=== PATIENT | female | born 1980 | race African-American/Black ===

== ENCOUNTER 2016-11-26 13:05 | Emergency (ER) | payer OTHER, BC ==
[2016-11-26 13:09] VITALS: TEMP 98.5; BMI 25.9
--- NOTE | 2016-11-26 14:51 | PDOC ---
History of Present Illness - General History Source: Patient Exam Limitations: No Limitations - History of Present Illness Initial Comments: 11/26/16 14:52 The patient is a 36-year-old woman A1, currently 24 weeks , with no past medical history who was advised to presents to the emergency department by her Bulking Machine Operator Dr. Preeti Cantrell to rule out possible deep venous thrombosis. As per patient, she reports experiencing left calf discomfort for the past 2 days. She notes that her pain is worsen when she applies pressure on her leg. She also recalls noting mild left ankle swelling last night. No chest pain, cough, shortness of breath, lightheadedness, headaches, visual changes, dizziness, nausea, vomiting. She denies recent travel /surgeries/immobility, tobacco use, hormone use, personal or family history of thrombosis. Allergies: Shellfish. Past Surgical History: None reported Social History: No tobacco, EtOH and recreational drug use. Demolition Crane Operator: Dr. Preeti Cantrell. <Jaylin Denise - Last Filed: 11/26/16 16:11> - General History Source: Patient <DougnestorGiovanni - Last Filed: 11/26/16 16:13> - General Chief Complaint: Pain, Acute Stated Complaint: DVT, 24 WKS Time Seen by Provider: 11/26/16 14:50 Past History <Jaylin Denise - Last Filed: 11/26/16 16:11> - Past Medical History Asthma: No Cancer: No Cardiac Disorders: No Diabetes: No HTN: No Seizures: No Thyroid Disease: No - Psycho/Social/Smoking Cessation Hx Suicidal Ideation: No Smoking History: Never smoked Hx Alcohol Use: No Drug/Substance Use Hx: No Hx Substance Use Treatment: No <ObeyGiovanni - Last Filed: 11/26/16 16:13> - Past Medical History Allergies/Adverse Reactions: Allergies Allergy/AdvReac Type Severity Reaction Status Date / Time shellfish derived Allergy Severe Difficulty Verified 11/26/16 13:07 Breathing Home Medications: Ambulatory Orders Ferrous Sulfate [Feosol -] 325 mg PO BID 11/08/14 Vit/Iron Fumarate/FA [ Tablet] 1 each PO DAILY 11/08/14 Docusate Sodium [Colace] 100 mg PO TID #90 capsule 11/28/14 Review of Systems - Review of Systems Able to Perform ROS?: Yes Comments:: 11/26/16 14:52 CONSTITUTIONAL: Absent: fever, chills, diaphoresis, generalized weakness, malaise, loss of appetite HEENT: Absent: rhinorrhea, nasal congestion, throat pain, throat swelling, difficulty swallowing, mouth swelling, ear pain, eye pain, visual Changes CARDIOVASCULAR: Absent: chest pain, syncope, palpitations, irregular heart rate , lightheadedness, peripheral edema RESPIRATORY: Absent: cough, shortness of breath, dyspnea with exertion, orthopnea, wheezing, stridor, hemoptysis GASTROINTESTINAL:Absent: abdominal pain, abdominal distension, nausea, vomiting , diarrhea, constipation, melena, hematochezia GENITOURINARY: Absent: dysuria, frequency, urgency, hesitancy, hematuria, flank pain, genital pain MUSCULOSKELETAL: Present: Left calf pain. Left ankle swelling. Absent: joint swelling SKIN: Absent: rash, itching, pallor HEMATOLOGIC/IMMUNOLOGIC: Absent: easy bleeding, easy bruising, lymphadenopathy, frequent infections ENDOCRINE:Absent: unexplained weight gain, unexplained weight loss, heat intolerance, cold intolerance NEUROLOGIC: Absent: headache, focal weakness or paresthesias, dizziness, unsteady gait, seizure, mental status changes, bladder or bowel incontinence PSYCHIATRIC: Absent: anxiety, depression, suicidal or homicidal ideation, hallucinations <Jaylin Denise - Last Filed: 11/26/16 16:11> *Physical Exam - Vital Signs Last Vital Signs Temp Pulse Resp BP Pulse Ox 98.5 F 93 H 18 124/73 97 11/26/16 13:08 11/26/16 13:08 11/26/16 13:08 11/26/16 13:08 11/26/16 13:08 - Physical Exam Comments: 11/26/16 14:52 GENERAL: Well developed, well nourished. Awake and alert. No acute distress. HEENT: Normocephalic, atraumatic. PERRLA, EOMI. No conjunctival pallor. Sclera are non-icteric. Moist mucous membranes. Oropharynx is clear. NECK: Supple. Full ROM. No JVD. CARDIOVASCULAR: Regular rate and rhythm. No murmurs, rubs, or gallops. PULMONARY: No evidence of respiratory distress. Lungs clear to auscultation bilaterally. No wheezing, rales or rhonchi. ABDOMINAL: Soft. Non-tender. Non-distended. No rebound or guarding. No organomegaly. Normoactive bowel sounds. MUSCULOSKELETAL: Normal range of motion at all joints. No bony deformities or tenderness. No CVA tenderness. EXTREMITIES: There is reproducible left medial gastrocnemius head tenderness to palpation. No cyanosis. No clubbing. No edema. SKIN: Warm and dry. Normal capillary refill. No rashes. No jaundice. NEUROLOGICAL: Alert, awake, appropriate. Cranial nerves 2-12 intact. No deficits to light touch and temperature in face, upper extremities and lower extremities. No motor deficits in the in face, upper extremities and lower extremities. Normoreflexic in the upper and lower extremities. Normal speech. PSYCHIATRIC: Cooperative. Good eye contact. Appropriate mood and affect. <Jaylin Denise - Last Filed: 11/26/16 16:11> - Vital Signs Last Vital Signs Temp Pulse Resp BP Pulse Ox 98.5 F 93 H 18 124/73 97 11/26/16 13:08 11/26/16 13:08 11/26/16 13:08 11/26/16 13:08 11/26/16 13:08 <Giovanni Barnhart - Last Filed: 11/26/16 16:13> Medical Decision Making - Medical Decision Making 11/26/16 16:12 The patient is well-appearing and in no acute distress Ultrasound noted, without evidence of DVT Her signs and symptoms do represent a musculoskeletal injury She understands that she should have a repeat ultrasound in 3-5 days Clinical impression: Gastrocnemius muscle strain I discussed the physical exam findings, ancillary test results and final diagnoses with the patient. I answered all of the patient's questions. The patient was satisfied with the care received and felt comfortable with the discharge plan and treatment plan. The patient will call their primary care physician within 24 hours to arrange follow-up and will return to the Emergency Department with any new, persistent or worsening symptoms. A portion of this note was documented by scribe services under my direction. I have reviewed the details of the note, within reason, and agree with the documentation with the following case summary and management plan written by me. <Giovanni Barnhart - Last Filed: 11/26/16 16:13> *DC/Admit/Observation/Transfer - Attestations Scribe Attestion: 11/26/16 14:52 Documentation prepared by Jaylin Denise, acting as director of medical education for Giovanni Barnhart MD. <Jaylin Denise - Last Filed: 11/26/16 16:11> <Giovanni Barnhart - Last Filed: 11/26/16 16:13> Diagnosis at time of Disposition: Strain of calf muscle - Discharge Dispostion Disposition: HOME Condition at time of disposition: Improved - Referrals Referrals: Steve Calzada MD [Primary Care Provider] - - Patient Instructions Printed Discharge Instructions: DI for Muscle Strain Additional Instructions: Your ultrasound did not show evidence of deep venous thrombosis. However, it is advisable that you have a repeat ultrasound in 3-5 days as 2 ultrasounds have a much higher negative predictive value for DVT. Return to the emergency department immediately with ANY new, persistent or worsening symptoms. You MUST call and follow up with your doctor tomorrow. Please make sure your doctor reviews the results of your emergency department evaluation.
[2016-11-26 17:01] VITALS: BP 122/69; PULSE 88
== END 2016-11-26 16:35 | disposition home or self-care (01) ==
LOC: JER 13:05
DX: O26.892 Other specified pregnancy related conditions, second trimester (principal); Z3A.24 24 weeks gestation of pregnancy
CPT/HCPCS: 93971-TC; 99282-25

== ENCOUNTER 2017-03-15 20:40 | Inpatient (IN) | payer BC ==
[2017-03-15 22:09] LABS: BASOPHIL 0.5 % (0-2.0); EOSINOPHIL 0.3 % (0-4.5); MCH 28.1 pg (25.7-33.7); MCHC 32.8 g/dl (32.0-36.0); MEAN CELL VOLUME 85.6 fl (80-96); MEAN PLT VOLUME 10.3 fl (7.5-11.1); NEUTROPHILS 74.1 % (42.8-82.8); PLATELET COUNT 180 K/MM3 (134-434); RDW 14.8 % (11.6-15.6); WHITE BLOOD COUNT 9.2 K/mm3 (4.0-10.0)
--- NOTE | 2017-03-15 22:15 | HP ---
Past Medical History - Admission Chief Complaint: Gestational diabetes History of Present Illness: 36 yo 39.6 weeks gestation with GDMA, admitted for cervidil induction. Patient denies any contractions pain. History Source: Patient Limitations to Obtaining History: No Limitations - Past Medical History ...: 4 ...Para: 1 ...EDC by Francchandu: 03/16/17 - Past Surgical History Past Surgical History: Yes: None Hx Myomectomy: No Hx Transabdominal Cerclage: No - Smoking History Smoking history: Never smoked - Alcohol/Substance Use Hx Alcohol Use: No - Social History Usual Living Arrangement: Yes: With Spouse History of Recent Travel: No Home Medications - Allergies Allergies/Adverse Reactions: Allergies Allergy/AdvReac Type Severity Reaction Status Date / Time shellfish derived Allergy Severe Difficulty Verified 11/26/16 13:07 Breathing - Home Medications Home Medications: Ambulatory Orders Vit/Iron Fumarate/FA [ Tablet] 1 each PO DAILY 11/08/14 Family Disease History - Family Disease History Family History: Unremarkable Review of Systems - Review of Systems Constitutional: reports: No Symptoms Eyes: reports: No Symptoms HENT: reports: No Symptoms Neck: reports: No Symptoms Cardiovascular: reports: No Symptoms Respiratory: reports: No Symptoms Gastrointestinal: reports: No Symptoms Genitourinary: reports: No Symptoms Breasts: reports: No Symptoms Reported Musculoskeletal: reports: No Symptoms Integumentary: reports: No Symptoms Neurological: reports: No Symptoms Endocrine: reports: No Symptoms Hematology/Lymphatic: reports: No Symptoms Psychiatric: reports: No Symptoms Pain Intensity: 0 Physical Exam - Maternity Constitutional: Yes: Well Nourished Eyes: Yes: Conjunctiva Clear HENT: Yes: Atraumatic Neck: Yes: Supple Cardiovascular: Yes: Regular Rate and Rhythm Lungs: Clear to auscultation Breast(s): Yes: WNL - Abdominal Exam/OB Number of Fetuses: Single Presentation: Vertex - Vaginal Exam/OB Vaginal Bleediing: No Speculum Exam: No Dilatation (cm): 1 Effacement (%): 50 Amniotic Membrane Status: Intact Station: -4 - Physical Exam Musculoskeletal: Yes: WNL Extremities: Yes: WNL ...Motor Strength: WNL Psychiatric: Yes: Alert, Oriented Problem List - Problems (1) Gestational diabetes Code(s): O24.419 - GESTATIONAL DIABETES MELLITUS IN , UNSP CONTROL Assessment/Plan Gestational diabetes Admit for cervidil induction Re-evaluate in 12 hrs or before if indicated
[2017-03-15 22:22] LABS: INR 0.99 (0.82-1.09); PROTHROMBIN TIME (PATIENT) 10.9 SEC (9.98-11.88)
[2017-03-15 22:25] LABS: ACTIVATED PTT 26.4 SECONDS (26.9-34.4)
[2017-03-15 22:32] LABS: ANION GAP 10 (8-16); CALCIUM 8.7 mg/dL (8.5-10.1); CO2 24 mmol/L (21-32); CREATININE 0.6 mg/dL (0.55-1.02); GLUCOSE,RANDOM 120 mg/dL (74-106)
[2017-03-15 22:37] VITALS: BMI 28.3
[2017-03-15 22:55] LABS: HIV 1 & 2 AB NEGATIVE; HIV 1 AGp24 NEGATIVE
[2017-03-16] MEDS ORDERED: BUTORPHANOL TARTRATE 1 MG/ML VIAL IVPB ONE (09:20)
[2017-03-16] MEDS ORDERED: PROMETHAZINE HCL 25 MG/1 ML VIAL IVPUSH ONE (09:20)
--- NOTE | 2017-03-16 09:20 | PN ---
Ante-Partal Exam - Subjective Subjective: Pt with cramping no ROM no JIMENEZ o RUQ pain Vital Signs: Vital Signs Temperature 98.3 F 03/16/17 06:00 Pulse Rate 98 H 03/16/17 09:00 Respiratory Rate 20 03/16/17 09:00 Blood Pressure 95/68 03/16/17 09:00 O2 Sat by Pulse Oximetry (%) Bleeding: No Headache: No Visual changes: No Right upper quadrant pain: No - Contractions Contractions: Yes Regularity: Irregular Intensity: Mild Monitor Mode: External - Exam during Labor Variability: Moderate Category: I Monitor Accelerations: Present Monitor Decelerations: None Exam: Vaginal Dilatation (cm): 2 Effacement (%): 80 Amniotic Membrane Status: Intact Presentation: Vertex Station: -1 - Intrapartum Hemorrhage Risk Risk Score: 0 Risk Level: Low Risk - Assessment/Plan Assessment/Plan: gestational DM Plan cervidil removed pitocin
[2017-03-16] MEDS ORDERED: OXYTOCIN 15 UNITS/ LR 250 ML 250 ML IVPB SCH (09:30)
[2017-03-16] MEDS ORDERED: ELECTROLYTE-148 SOLN 1,000 ML IV ONE (09:35)
[2017-03-16] MEDS ORDERED: ELECTROLYTE-148 SOLN 500 ML IV ONE (09:40)
[2017-03-16] MEDS ORDERED: ELECTROLYTE-148 SOLN 500 ML IV SCH (10:10)
[2017-03-16] MEDS ORDERED: FENTANYL/BUPIVACAINE/NS/PF - PCEA - 50 ML DISP.SYRIN EP SCH (13:00)
[2017-03-16] MEDS ORDERED: BENZOCAINE 20% 57 GM BOTTLE TP PRN (19:26)
[2017-03-16] MEDS ORDERED: WITCH HAZEL 50% (TUCKS) 40 PAD/JAR PAD TP PRN (19:26)
[2017-03-16] MEDS ORDERED: METHYLERGONOVINE MALEATE 0.2 MG/1 ML AMP IM PRN (19:26)
[2017-03-16] MEDS ORDERED: BENZOCAINE 28 GM HEMORRHOIDAL OINTMENT PR PRN (19:26)
[2017-03-16] MEDS ORDERED: IBUPROFEN 600 MG TABLET (FP) PO PRN (19:26)
[2017-03-16] MEDS ORDERED: BISACODYL 10 MG SUPP.RECT RC PRN (19:26)
[2017-03-16] MEDS ORDERED: ACETAMINOPHEN 325 MG TABLET (FP) PO PRN (19:26)
--- NOTE | 2017-03-16 19:26 | PN ---
Ante-Partal Exam - Subjective Subjective: Pt iwth c/o of feeling pressure Vital Signs: Vital Signs Temperature 97.7 F 03/16/17 18:00 Pulse Rate 71 03/16/17 18:30 Respiratory Rate 20 03/16/17 18:30 Blood Pressure 100/66 03/16/17 18:30 O2 Sat by Pulse Oximetry (%) 100 03/16/17 18:30 Headache: No Visual changes: No Right upper quadrant pain: No - Contractions Contractions: Yes Regularity: Regular Monitor Mode: External - Exam during Labor Category: I Monitor Accelerations: Present Monitor Decelerations: None Exam: Vaginal Dilatation (cm): 10 Effacement (%): 100 Amniotic Membrane Status: Ruptured Amniotic Fluid: Clear Presentation: Vertex Station: +2 - Intrapartum Hemorrhage Risk Risk Score: 0 Risk Level: Low Risk - Assessment/Plan Assessment/Plan: Active labor 2nd stage Plan anticipate vaginal delivery
[2017-03-16] MEDS ORDERED: D5W-LR W/ 20 UNITS OXYTOCIN 1,000 ML IV SCH (19:30)
[2017-03-16 19:39] LABS: ARTERIAL BLD GAS O2 SATURATION 77.1 % (90-98.9); ARTERIAL BLOOD GAS BASE EXCESS 0.9 meq/l (-2-2); ARTERIAL BLOOD GAS PO2 35.1 mmHg (80-100); ARTERIAL BLOOD GAS pH 7.42 (7.35-7.45)
[2017-03-16 19:42] LABS: VENOUS BLOOD GAS HCO3 24.9 meq/L (19-25); VENOUS PH 7.41 (7.32-7.42)
[2017-03-17 08:09] LABS: BASOPHIL 0.4 % (0-2.0); EOSINOPHIL 0.6 % (0-4.5); MCH 27.8 pg (25.7-33.7); MCHC 32.5 g/dl (32.0-36.0); MEAN CELL VOLUME 85.7 fl (80-96); NEUTROPHILS 69.9 % (42.8-82.8); PLATELET COUNT 150 K/MM3 (134-434); RDW 15.1 % (11.6-15.6); WHITE BLOOD COUNT 9.8 K/mm3 (4.0-10.0)
--- NOTE | 2017-03-17 10:14 | PN ---
Post Progress Note - Subjective Subjective: Pt seen/evaluated and doing well. Pain controlled, tolerating diet, ambulating , voiding, passing flatus. Lochia minimal/moderate. NO complaints. Type of Delivery: Vital Signs: Vital Signs Temperature 98.6 F 03/17/17 07:30 Pulse Rate 82 03/17/17 07:30 Respiratory Rate 20 03/17/17 07:30 Blood Pressure 107/65 03/17/17 07:30 O2 Sat by Pulse Oximetry (%) 100 03/16/17 20:25 Uterus: Yes: Fundus Firm Abdomen/GI: Yes: Abdomen soft, Passing flatus, Tolerating PO. No: Tender Lochia, amount: Small Extremities: Yes: Calves non-tender Perineum: Yes: Laceration (repaired and well approximated) Activity: Ambulating - Labs Labs: CBC WBC 9.8 K/mm3 (4.0-10.0) 03/17/17 06:00 RBC 3.38 M/mm3 (3.60-5.2) L 03/17/17 06:00 Hgb 9.4 GM/dL (10.7-15.3) L D 03/17/17 06:00 Hct 29.0 % (32.4-45.2) L D 03/17/17 06:00 MCV 85.7 fl (80-96) 03/17/17 06:00 MCH 27.8 pg (25.7-33.7) 03/17/17 06:00 MCHC 32.5 g/dl (32.0-36.0) 03/17/17 06:00 RDW 15.1 % (11.6-15.6) 03/17/17 06:00 Plt Count 150 K/MM3 (134-434) 03/17/17 06:00 MPV 10.0 fl (7.5-11.1) 03/17/17 06:00 Neutrophils % 69.9 % (42.8-82.8) 03/17/17 06:00 Lymphocytes % 24.3 % (8-40) 03/17/17 06:00 Monocytes % 4.8 % (3.8-10.2) 03/17/17 06:00 Eosinophils % 0.6 % (0-4.5) D 03/17/17 06:00 Basophils % 0.4 % (0-2.0) 03/17/17 06:00 Problem List - Problems (1) Vaginal delivery Code(s): O80 - ENCOUNTER FOR FULL-TERM UNCOMPLICATED DELIVERY (2) Anemia Code(s): D64.9 - ANEMIA, UNSPECIFIED Assessment/Plan 36 y/o PPD#1 s/p normal - AFVSS - Hgb 9.4 post , pt stable, asymptomatic, for prenatals and PO Iron - regular diet - PO pain meds - routine care
[2017-03-17] MEDS: FERROUS SO4 325 MG TABLET (FP) PO SCH (21:53)
--- NOTE | 2017-03-18 06:47 | DS ---
Physical Exam-EXECUTIVE VICE PRESIDENT Vital Signs: Vital Signs Temperature 98.5 F 03/18/17 06:00 Pulse Rate 82 03/18/17 06:00 Respiratory Rate 18 03/18/17 06:00 Blood Pressure 106/64 03/18/17 06:00 O2 Sat by Pulse Oximetry (%) 100 03/16/17 20:25 Labs: CBC, BMP 03/17/17 06:00 03/15/17 22:00 Delivery - Delivery Vaginal Delivery: No Problems Type of Anesthesia: Local Episiotomy/Laceration: 1st degree EBL (cc): 300 Delivery, Single - Stages of Labor Date 1st Stage Initiatied: 03/16/17 Time 1st Stage Initiated: 13:00 Date 2nd Stage Initiated: 03/16/17 Time 2nd Stage Initiated: 18:30 Date of Delivery: 03/16/17 Time of Delivery: 19:02 Time Placenta Delivered: 19:06 Placenta: Yes: Spontaneous - Condition of Infant Road Freight Firer/Rooter Operator Present: No Infant Gender: Male Weight: 8 lb 1 oz Position: OA Total Hours ROM (Hrs/Mins): 36 minutes - 1 Minute Total Score: 9 5 Minutes Total Score: 9 - [place] Feeding Plan Initial Plan: Elected not to breastfeed exclusively throughout hospitalization Discharge Summary Reason For Visit: LABOR INDUCTION Current Active Problems Anemia (Acute) Gestational diabetes (Acute) Vaginal delivery (Acute) Procedures: Principal: normal Other Procedures: Labor induction Hospital Course: Patient admitted for induction of labor on the evening of 03/15/17. She subsequently underwent a normal on 03/16/17 and was discharged home in stable condition on post day 2. Condition: Good - Instructions Diet, Activity, Other Instructions: Physical activity Resume your normal everyday activity as tolerated but no heavy lifting or strenuous exercise until seen by your doctor. You may walk unlimited amounts and climb stairs. You may resume driving the car when you feel safe and comfortable behind the wheel. No sexual activity as instructed for 6 weeks. Wound care You may shower daily. Do not soak or submerge in tubs/baths/pools of water. Diet There are no dietary restrictions. Eat healthy, high-fiber foods. Drink 6 to 8 glasses of liquid each day. This will assist in keeping your bowels regular. Pain management You may take Tylenol or Ibuprofen (for example, Motrin, Advil etc.) as needed for pain. IF any pain prescription is sent to your pharmacy, please take as directed. Call MD for any of the following: Severe pain not relieved by medication Fever of 101 or higher Excessive bleeding or drainage on dressing Inability to urinate Referrals: Preeti Cantrell MD [Staff Physician] - Disposition: HOME - Home Medications Comprehensive Discharge Medication List: Ambulatory Orders Vit/Iron Fumarate/FA [ Tablet] 1 each PO DAILY 11/08/14 Ibuprofen [Motrin -] 600 mg PO QID PRN #28 tablet 03/16/17
[2017-03-18] MEDS: FERROUS SO4 325 MG TABLET (FP) PO SCH (10:00)
[2017-03-18 10:02] VITALS: BP 102/69; PULSE 90; TEMP 98.6
--- NOTE | 2017-03-19 13:08 | PN ---
Delivery - Delivery Vaginal Delivery: No Problems Type of Anesthesia: Local Episiotomy/Laceration: 1st degree EBL (cc): 300 Delivery, Single - Stages of Labor Date 1st Stage Initiatied: 03/16/17 Time 1st Stage Initiated: 13:00 Date 2nd Stage Initiated: 03/16/17 Time 2nd Stage Initiated: 18:30 Date of Delivery: 03/16/17 Time of Delivery: 19:02 Time Placenta Delivered: 19:06 Placenta: Yes: Spontaneous - Condition of Infant Footwear Production Machine Operator/Aniline Press Worker Present: No Infant Gender: Male Weight: 8 lb 1 oz Position: OA Total Hours ROM (Hrs/Mins): 36 minutes - 1 Minute Total Score: 9 5 Minutes Total Score: 9 - [place] Feeding Plan Initial Plan: Elected not to breastfeed exclusively throughout hospitalization
== END 2017-03-18 11:30 | disposition home or self-care (01) | DRG 775 ==
LOC: JLDR 20:40 → J3W 03-16 21:05
PROVIDERS: ADMIT Obstetrics & Gynecology; ATTEND Obstetrics & Gynecology
PROC: 4A1HXCZ Monitoring of Products of Conception, Cardiac Rate, External Approach (ICD-10-PCS; 2017-03-15)
PROC: 3E0P7GC Introduction of Other Therapeutic Substance into Female Reproductive, Via Natural or Artificial Opening (ICD-10-PCS; 2017-03-15)
PROC: 10E0XZZ Delivery of Products of Conception, External Approach (ICD-10-PCS; principal; 2017-03-16)
PROC: 0HQ9XZZ Repair Perineum Skin, External Approach (ICD-10-PCS; 2017-03-16)
DX: O24.425 Gestational diabetes mellitus in childbirth, controlled by oral hypoglycemic drugs (principal); O70.0 First degree perineal laceration during delivery; O99.013 Anemia complicating pregnancy, third trimester; D64.9 Anemia, unspecified; Z3A.39 39 weeks gestation of pregnancy; Z37.0 Single live birth
CPT/HCPCS: 36415; 36600; 59409; 80048; 82803; 85025; 85610; 85730; 86593; 86762; 86850; 86900; 86901; 87340; 87389